=== PATIENT | female | born 1975 | race Caucasian/White ===

== ENCOUNTER 2017-02-25 07:08 | Day surgery (SDC) | payer OTHER ==
[2016-03-22 09:10] VITALS: BMI 19.1
[2017-02-25] MEDS ORDERED: Propofol 10 mg/ml Inj (20 ML) ONE (09:53)
[2017-02-25] MEDS ORDERED: Simethicone 40 mg/0.6 ml Liquid (30 ml) ONE (10:13)
[2017-02-25] MEDS ORDERED: Lidocaine Hydrochloride 10 ML INJ ONE (10:26)
[2017-02-25 10:40] VITALS: TEMP 97.8; O2SAT 100
[2017-02-25 11:16] VITALS: BP 92/51; PULSE 62; RESP 12
== END 2017-02-25 11:45 | disposition home or self-care (01) ==
LOC: C.ENDO 07:08
PROVIDERS: ATTEND Internal Medicine Gastroenterology
DX: K59.00 Constipation, unspecified (principal); K64.8 Other hemorrhoids; K29.70 Gastritis, unspecified, without bleeding
CPT/HCPCS: 43239; 45378; 84703; 88305; J2704; J3010